=== PATIENT | female | born 1970 | race Caucasian/White ===

== ENCOUNTER → 2022-09-29 08:47 | Outpatient (CLI) | payer BC, SELFPAY ==
[2022-09-29 09:55] LABS: Hemoglobin A1C% w Est Avg Glu 5.8 % (4.0-6.0)
[2022-09-29 10:15] LABS: Alanine Aminotransferase 122 IU/L (<35); Alkaline Phosphatase 66 U/L (38-126); Aspartate Aminotransferase 63 IU/L (14-36); Bilirubin Total 0.9 mg/dL (0.2-1.3); Bilirubin Unconjugated 0.6 mg/dL (0.0-1.1); Cholesterol 258 mg/dL (140-199); Glucose 118 mg/dL (70-100); HDL Cholesterol 45 mg/dL (40-60); HEMOLYSIS < 15 (0-50); LDL Cholesterol Calculated 185 mg/dL (<100); Total Protein 7.2 g/dL (6.3-8.2); Triglycerides 138 mg/dL (35-150)
[2022-09-29 19:40] LABS: Albumin 4.2 g/dL (3.5-5.0); Albumin Globulin Ratio 1.4 (1.0-2.8)
== END ==
PROVIDERS: PCP Naturopath; Referring Provider Naturopath; Visit Provider Naturopath
DX: E78.5 Hyperlipidemia, unspecified (principal); R73.9 Hyperglycemia, unspecified; R74.8 Abnormal levels of other serum enzymes
CPT/HCPCS: 36415; 80061; 80076; 82947; 83036

== ENCOUNTER → 2022-11-16 07:54 | Outpatient (CLI) | payer OTHER, SELFPAY ==
--- NOTE | 2022-11-16 07:55 | DI.RAD.S_ITS ---
PROCEDURE: XR KNEE RT 3V INDICATIONS: Right knee injury TECHNIQUE: 3 views of the knee were acquired. COMPARISON: None. FINDINGS: Bones: No acute fractures or dislocations. A is subcentimeter osseous protuberance is seen arising from the medial aspect of the proximal tibial metaphysis, consistent with a small pedunculated osteochondroma. Soft tissues: Small to moderate joint effusion. Mild prepatellar subcutaneous edema. No suspicious soft tissue calcifications. IMPRESSION: 1. No acute osseous abnormality. If clinical suspicion and/or symptoms persist, additional imaging with repeat plain films, or advanced imaging (e.g. CT, MRI) may be helpful for further assessment. 2. Small to moderate joint effusion. 3. Subcentimeter osteochondroma arising from the medial tibia. Approved by: Berlin Clayton M.D. on 11/16/2022 at 10:36
== END ==
PROVIDERS: PCP Naturopath; Referring Provider Registered Nurse; Visit Provider Registered Nurse
DX: M25.561 Pain in right knee (principal); M25.461 Effusion, right knee
CPT/HCPCS: 73562

== ENCOUNTER → 2023-01-05 16:04 | Outpatient (CLI) | payer BC, SELFPAY ==
--- NOTE | 2023-01-05 16:05 | DI.MRI.S_ITS ---
PROCEDURE: MR KNEE RT WO CON INDICATIONS: Contusion of right knee, initial encounter TECHNIQUE: Noncontrast sagittal PD fast spin echo and T2 fast spin echo with fat saturation, sagittal 3-D FLASH with fat saturation; coronal T1 spin echo and PD fast spin echo with fat saturation, and axial PD fast spin echo with fat saturation through the knee. COMPARISON: None. FINDINGS: Image quality: Excellent. Menisci: The medial and lateral menisci demonstrate normal morphology and internal signal. The meniscal root ligaments appear intact. Cruciate ligaments: The anterior cruciate ligament is thickened. The posterior cruciate ligament is also thickened with intrasubstance T2 hyperintense signal. Medial structures: The medial collateral ligament appears thickened with adjacent soft tissue edema and intrasubstance T2 hyperintense signal. The posterior oblique ligament, semimembranosus tendon insertions, oblique popliteal ligament, and meniscocapsular junction appear intact. Visualized portions of the pes anserinus tendons appear normal. No abnormal bursal fluid. Lateral structures: The lateral collateral ligament, long and short heads of the biceps femoris tendon appear intact. The popliteus tendon appears normal; the popliteofibular ligament appears intact. Iliotibial band appears normal. Anterior structures: The quadriceps and patellar tendons appear intact. Patellar alignment is normal. No femoral trochlear dysplasia or ventral trochlear prominence. No edema in the infrapatellar fat pad. Bones and cartilage: No bone marrow contusions or fractures. Low-grade chondromalacia in medial femoral tibial compartment and patellofemoral compartment is seen. Joint space: There is small knee joint fluid. No Carpio's cyst. Normal appearing synovial plicae are incidentally noted. IMPRESSION: 1. Thickened anterior cruciate ligament suggestive of mild degenerative changes and low-grade sprain. Suggestion of sprain/low-grade intrasubstance partial-thickness tear involving the posterior cruciate ligament. No full-thickness cruciate ligament rupture. 2. Low to moderate grade MCL sprain/intrasubstance partial-thickness tear. 3. No evidence of focal meniscal tear. 4. 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 No fracture or dislocation. Small joint effusion. Dictated by: Jasen Shields M.D. on 01/08/2023 at 8:06 Approved by: Jasen Shields M.D. on 01/08/2023 at 8:09
== END ==
PROVIDERS: PCP Naturopath; Referring Provider Physician Assistant; Visit Provider Physician Assistant
DX: S80.01XA Contusion of right knee, initial encounter (principal); S83.411A Sprain of medial collateral ligament of right knee, initial encounter; M94.261 Chondromalacia, right knee; M25.461 Effusion, right knee; X58.XXXA Exposure to other specified factors, initial encounter
CPT/HCPCS: 73721

== ENCOUNTER 2024-05-22 09:18 | Day surgery (SDC) | payer BC, SELFPAY ==
--- NOTE | 2024-05-22 | PATH_ITS ---
[facility] Accession Number: [id number] No. of containers..02 Tissue . 01 Material submitted: . PART A: colon - TRANSVERSE COLON POLYP PART B: colon - SIGMOID COLON POLYP . 01 Diagnosis: A. TRANSVERSE COLON POLYP: Tubular adenoma. . B. SIGMOID COLON POLYP: Traditional serrated adenoma. Negative for high-grade dysplasia or malignancy. MRV 05/26/2024 1238 Local . 01 Electronically signed: . Lukasz Saravia MD, PhD, Pathologist NPI- [id number] . 01 Gross description: . A. Received in formalin with two patient identifiers and transverse colon polyp, is a single durbin soft tissue fragment 0.5 cm in greatest dimension. Submitted in cassette A1. B. Received in formalin with two patient identifiers and sigmoid colon polyp, is a single durbin to brown soft tissue fragment 0.9 x 0.8 x 0.6 cm. Inked, sectioned, and submitted in cassette B1. ([id number]) /AKHIL 05/23/2024 1027 Local . 01 Pathologist provided ICD-10: D12.3, D12.5 . 01 CPT . 558869, 575387 Specimen Comment: A courtesy copy of this report has been sent to [phone] Performed at: [address] [address], [place], [place] [id number] MD Ismael Sousa MD Phone: [phone]
[2024-05-22 09:50] VITALS: BP 131/91; PULSE 85; RESP 18; TEMP 36.2; O2SAT 97
[2024-05-22] MEDS: LACTATED RINGERS 1,000 ML 42 ML IV (09:56)
--- NOTE | 2024-05-22 10:23 | PM.HP.1 ---
History of Present Illness History of Present Illness Date Patient Seen: 05/22/24 Time Patient Seen: 10:23 Chief complaint: Colonoscopy Narrative: Rachel is a 54-year-old woman who is here for a screening colonoscopy. She has never had one before. No family history of colon cancer. No prior surgical procedures. [facility] Medical History (Updated 05/22/24 @ 10:23 by Jung Anthony MD) Hx of Marvin thyroiditis Family history of fatty liver History of high cholesterol History of high blood pressure Social History Smoking Status: Never smoker alcohol intake: current Meds Home Medications and Allergies Home Medications Medication Instructions Recorded Confirmed Type amlodipine 5 mg tablet 5 mg PO DAILY 05/22/24 05/22/24 History aspirin 81 mg tablet,delayed 81 mg PO DAILY 05/22/24 05/22/24 History release metoprolol succinate 50 mg 50 mg PO DAILY 05/22/24 05/22/24 History tablet,extended release 24 hr olmesartan 40 1 tab PO DAILY 05/22/24 05/22/24 History mg-hydrochlorothiazide 25 mg tablet (Benicar HCT) progesterone micronized (bulk) 100 ea miscellaneous 05/22/24 History % powder thyroid (pork) 60 mg tablet ([employer] 60 mg PO DAILY 05/22/24 05/22/24 History Thyroid) Allergies Allergy/AdvReac Type Severity Reaction Status Date / Time No Known Drug Allergies Allergy Unverified 11/16/22 07:27 Exam Vital Signs (past 8 hours): - 05/22/24 09:50 Temperature 97.2 F L Pulse Rate 85 Respiratory Rate 18 Blood Pressure 131/91 H Pulse Oximetry 97 Oxygen Delivery Method Room Air Oxygen Delivery Method Room Air Const General: No acute distress Assessment & Plan Assessment and plan (1) Colon cancer screening: Status: Acute Plan We reviewed the risks and benefits of colonoscopy for colon cancer screening and she would like proceed. Time-Based Coding :: [TOTAL MINUTES] spent with patient and on the chart (including review of chart, obtaining history, exam, reviewing outside data, placing orders, documenting exam and treatment plan, and counseling patient) on [DATE].
--- NOTE | 2024-05-22 10:57 | PM.OP.COLON ---
Operative Date/Time/Diagnoses Date of procedure: 05/22/24 Time of procedure: 10:57 Pre-op diagnosis: Colon cancer screening Post-op diagnosis: same Procedure & Clinicians Study performed: Colonoscopy Same procedure as scheduled: Yes Surgeon: Jung Anthony Procedure Notes Procedure in detail: Surgeon: Jung Anthony MD Anesthesia: Ankur Burks DO Procedure: The patient was brought to the endoscopy suite, placed in left lateral decubitus position. The patient was connected to monitoring devices. A time-out was performed. Sedation was administered. Once the patient was adequately sedated, a digital rectal exam was performed and was normal. The scope was then inserted and advanced to the cecum where the appendiceal orifice was identified and photographed. The scope was then slowly withdrawn over greater than 6 minutes. The mucosa was thoroughly inspected. There was a 7 mm polyp in the transverse colon removed with a cold snare. There was a 1 cm polyp in the proximal sigmoid colon at 50 cm removed with a cold snare. There was a slow steady ooze coming from polypectomy wound so a hemoclip was applied with good effect. The rest of the colon was normal. The scope was retroflexed in the rectum. No other abnormalities were identified. The scope was straightened and removed. The patient was awakened and brought to recovery. Scope withdrawal time: 10 minute Sedation time: 15 minutes EBL: 10 mL Findings: 7 mm polyp in the transverse colon and 1 cm polyp in the proximal sigmoid colon at 50 cm Post-procedure Disposition: PACU
[2024-05-22 11:00] VITALS: BP 111/71; PULSE 76; RESP 16; TEMP 36.2; O2SAT 97
[2024-05-22 11:01] VITALS: BP 119/79; PULSE 71; RESP 16; TEMP 36.2; O2SAT 98
== END 2024-05-22 11:25 | disposition home or self-care (01) ==
PROVIDERS: PCP Nurse Practitioner; Referring Provider Surgery; Visit Provider Surgery
PROC: 0DJD8ZZ Inspection of Lower Intestinal Tract, Via Natural or Artificial Opening Endoscopic (ICD-10-PCS; CPT 45378; principal; 2024-05-22 10:15)
DX: Z12.11 Encounter for screening for malignant neoplasm of colon (principal); D12.3 Benign neoplasm of transverse colon; D12.5 Benign neoplasm of sigmoid colon
CPT/HCPCS: 45385; J2704

== ENCOUNTER → 2024-08-29 08:24 | Outpatient (CLI) | payer BC, SELFPAY ==
--- NOTE | 2024-08-29 08:26 | DI.US.S_ITS ---
PROCEDURE: US PELVIC COMPLETE INDICATIONS: PMB TECHNIQUE: Real-time scanning was performed of the pelvic organs, with image documentation. Additional endovaginal scanning was necessary due to incomplete visualization of the adnexal and endometrial structures by transabdominal scanning. COMPARISON: None. FINDINGS: Uterus: Uterus is anteverted and enlarged in size at 11.7 x 11.1 x 10.0 cm. The myometrium is heterogeneous. The endometrium measures 24.1 mm combined thickness. Mid submucosal fibroid measuring 2.1 x 1.8 x 2.4 centimeters. Right anterior intramural fibroid measuring 8.1 x 5.9 x 6.2 centimeters. Right posterior intramural fibroid measuring 2.8 x 3.0 x 3.4 centimeters. Hypervascular cervical polyps measuring 1.3 x 0.5 x 1.1 centimeters and 0.8 x 0.5 x 0.8 centimeters. Ovaries: The ovaries are not seen. Other: No pathologic free abdominal or pelvic fluid. IMPRESSION: Endometrium is thickened measuring 24 millimeters. Recommend endometrial sampling or short-term follow-up ultrasound. Hypervascular cervical polyps measuring 1.3 centimeters and 0.8 centimeters. Recommend gynecology consultation. Uterine fibroids measuring up to 8.1 centimeters, as above. We strive to produce accurate, complete, and clear reports of imaging services. To assist us in improving patient care, this report was composed using standard report templates and voice recognition software. Therefore, it may contain abnormal punctuation, insertions and/or omissions. Occasional wrong-word or sound-alike substitutions may occur. Though we review the report and make efforts to correct it, we do recommend that the report be read carefully in proper context to recognize any text inaccuracies. Dictated by: Bello Dougherty M.D. on 08/29/2024 at 10:07 Approved by: Bello Dougherty M.D. on 08/29/2024 at 10:10
== END ==
PROVIDERS: PCP Nurse Practitioner
DX: N95.0 Postmenopausal bleeding (principal); N93.9 Abnormal uterine and vaginal bleeding, unspecified; R93.89 Abnormal findings on diagnostic imaging of other specified body structures; D25.0 Submucous leiomyoma of uterus; D25.1 Intramural leiomyoma of uterus; N84.1 Polyp of cervix uteri
CPT/HCPCS: 76830; 76856

== ENCOUNTER 2024-10-20 14:47 | Day surgery (SDC) | payer BC, SELFPAY ==
[2024-10-14 09:00] VITALS: BMI 36.6
--- NOTE | 2024-10-20 | PATH_ITS ---
[facility] Accession Number: [id number] No. of containers..01 Tissue . 01 Material submitted: . endometrium - ENDOMETRIAL CONTENTS . 01 Diagnosis: ENDOMETRIAL CONTENTS: Portions of disordered proliferative endometrium; negative for endometrioid intraepithelial neoplasia or malignancy. Some endometrial fragments demonstrate prominent vessels, suggestive of polyp, if clinical and imaging studies are concordant. [facility] 10/22/2024 1155 Local . 01 Electronically signed: . Gege Valencia MD, Pathologist NPI- [id number] . 01 Gross description: . ENDOMETRIAL CONTENTS: Received in formalin are minute fragments of mucoid and hemorrhagic material measuring 5.0 x 5.0 x 0.3 cm in aggregate. Submitted in toto in 2 cassettes. /YUKO 10/21/2024 0149 Local . 01 Pathologist provided ICD-10: N95.0, R93.89 . 01 CPT . 077326 Specimen Comment: A courtesy copy of this report has been sent to [facility] Pathology Performed at: [address] [address], [place], [place] [id number] MD Ismael Sousa MD Phone: [phone]
[2024-10-20 15:30] VITALS: BP 135/82; PULSE 75; RESP 18; TEMP 36.3; O2SAT 99
[2024-10-20] MEDS: LACTATED RINGERS 1,000 ML 42 ML IV (15:39)
[2024-10-20] MEDS: ACETAMINOPHEN IV 1,000 MG/100 ML VIAL 400 MG IV (15:45)
--- NOTE | 2024-10-20 16:07 | PM.PREOP ---
Pre-operative Note Interval Note History & Physical reviewed/Exam performed by Physician: Yes Changes to H&P: No H&P completed within 30 days and has changed as indicated here:: 09/26/24 ASA Class (for procedural sedation): II
--- NOTE | 2024-10-20 16:52 | SUR.OPER ---
Lithotomy on padded OR bed, head on pillow, arms secured on padded arm boards at <90 degrees abduction. Legs secured in padded yellow fins stirrups.
--- NOTE | 2024-10-20 17:05 | P.OP_ITS ---
Operative Date/Time/Diagnoses Date of procedure: 10/20/24 Time of procedure: 17:05 Pre-op diagnosis: postmenopausal bleeding, abnormal pelvic US Post-op diagnosis: same Procedure & Clinicians Procedure: hysteroscopy, myosure polypectomy, dilation and curettage Same procedure as scheduled: Yes Indications: postmenopausal bleeding, abnormal pelvic US Surgeon: Padmini Mckeon Click Yes if Unassisted: Yes Anesthesia Type: General Operative Notes Findings: normal external female genitalia, vagina, cervix intrauterine cavity with 2 large polyps, one of which had vesicular appearance bilateral ostia visualized Closure Type: not applicable Specimen(s): other (endometrial contents) Estimated Blood Loss (mL): 10 Procedure in detail: Pt was taken to the operating room, transferred to OR table and anesthesia was induced with placement of LMA.? Pt had her legs placed in Memo stirrups and an exam under anesthesia was performed. The patient was prepped and draped in a sterile fashion.?The bladder was emptied via straight catheter in a sterile fashion of approximately 250cc clear urine. A time out was performed. ? A sterile speculum was inserted into the vagina.? The cervix was visualized and grasped anteriorly using a single tooth tenaculum.? The uterus sounded to 8 cm and the cervical os was serially dilated using Wright dilators up to 17f to allow for passage of the hysteroscope.? The 5mm 0 degree hysteroscope was then inserted into the uterus with findings as noted.? The small Myosure device was introduced and the endometrium including visualized pathology was fractionally resected under direct visualization. The hysteroscope was removed and the uterus was sharply curetted until a gritty texture was noted throughout.? The tenaculum was removed and hemostasis was noted at insertion sites.? The speculum was removed and hemostasis was again noted to be excellent.? The patient then had her legs taken out of stirrups.? The patient tolerated the procedure well and without difficulty.? All counts correct x2. The patient was awakened from anes thesia and taken to PACU in stable condition. .? Complications: none Post-operative Condition: stable Disposition: PACU Plan for aftercare: anticipate dc to home pending clinical course
[2024-10-20 17:13] VITALS: BP 165/100; PULSE 79; RESP 12; TEMP 36.2; O2SAT 94
[2024-10-20 17:18] VITALS: BP 123/85; PULSE 66; RESP 11; O2SAT 98
[2024-10-20 17:21] VITALS: BP 132/93; PULSE 74; RESP 13; O2SAT 98
[2024-10-20 17:23] VITALS: BP 123/79; PULSE 67; RESP 16; O2SAT 99
[2024-10-20 17:28] VITALS: BP 162/101; PULSE 68; RESP 12; TEMP 36.4; O2SAT 97
== END 2024-10-20 17:54 | disposition home or self-care (01) ==
PROVIDERS: PCP Nurse Practitioner; Referring Provider Obstetrics & Gynecology; Visit Provider Obstetrics & Gynecology
PROC: 0UDB8ZZ Extraction of Endometrium, Via Natural or Artificial Opening Endoscopic (ICD-10-PCS; CPT 58558; principal; 2024-10-20 16:15)
DX: N95.0 Postmenopausal bleeding (principal); R93.89 Abnormal findings on diagnostic imaging of other specified body structures; N84.0 Polyp of corpus uteri
CPT/HCPCS: 58558; J0131; J1100; J1885; J2250; J2405; J2704